=== PATIENT | male | born 1980 | race Caucasian/White ===

== ENCOUNTER → 2017-06-21 | Outpatient (REF) | LOC: M SMT 09:18 | DX: Z02.71 Encounter for disability determination (principal) ==

== ENCOUNTER 2018-07-26 16:17 | Emergency (ER) | payer OTHER ==
[~2018-07-26] VITALS: Ht 175.3 cm; Wt 94.9 kg
[2018-07-26] MEDS ORDERED: IBUP-1114 PO (16:28)
[2018-07-26] MEDS ORDERED: METO1TAB7 (16:28)
[2018-07-26] MEDS ORDERED: CLAR10CA3 PO (16:28)
[2018-07-26] MEDS ORDERED: NS 1,000 ML IV ONE (18:30)
[2018-07-26 18:51] LABS: BASO % 0.1 % (0.0-1.0); EOS # 0.1 10^3/uL (0.0-0.50); EOS % 1.1 % (0.0-3.0); HEMATOCRIT 40.4 % (42.0-52.0); HEMOGLOBIN 14.2 g/dl (13.5-17.5); LYMPH # 0.7 10^3/uL (1.5-4.5); LYMPH % 9.7 % (24.0-44.0); MEAN CORPUSCULAR HEMOGLOBIN 33.4 pg (27.0-33.0); MEAN CORPUSCULAR HGB CONC 35.1 g/dl (32.0-36.5); MEAN CORPUSCULAR VOLUME 95.1 fl (80.0-96.0); MONO # 0.4 10^3/uL (0.0-0.8); MONO % 5.7 % (0.0-5.0); NEUTROPHILS # 5.8 10^3/uL (1.8-7.7); NEUTROPHILS % 83.1 % (36.0-66.0); PLATELET COUNT, AUTOMATED 164 10^3/uL (150-450); RED BLOOD COUNT 4.25 10^6/uL (4.30-6.10)
[2018-07-26 19:03] LABS: ALBUMIN 3.6 GM/DL (3.2-5.2); ALT/SGPT 232 U/L (12-78); AMYLASE 27 U/L (25-115); BILIRUBIN,TOTAL 7.8 MG/DL (0.2-1.0); BLOOD UREA NITROGEN 10 MG/DL (7-18); CALCIUM LEVEL 8.4 MG/DL (8.5-10.1); CARBON DIOXIDE LEVEL 26 MEQ/L (21-32); CHLORIDE LEVEL 104 MEQ/L (98-107); CREATININE FOR GFR 0.91 MG/DL (0.70-1.30); GAMMA GLUTAMYLTRANSPEPTIDASE 701 U/L (15-85); GLOMERULAR FILTRATION RATE > 60.0 (>60); GLUCOSE, FASTING 97 MG/DL (70-100); LIPASE 186 U/L (73-393); POTASSIUM SERUM 3.6 MEQ/L (3.5-5.1); SODIUM LEVEL 138 MEQ/L (136-145); TOTAL PROTEIN 6.2 GM/DL (6.4-8.2)
--- NOTE | 2018-07-26 19:41 | REPVR ---
EXAM: US Abdomen Limited, Right Upper Quadrant EXAM DATE/TIME: 07/26/2018 6:12 PM CLINICAL HISTORY: 38 years old, male; Pain; Abdominal pain; Acute; Additional info: Ruq pain with jaundice TECHNIQUE: Imaging protocol: Real-time ultrasound of the abdomen with image documentation. Examination was focused on the right upper quadrant. COMPARISON: No relevant prior studies available. FINDINGS: Liver: The liver is mildly heterogeneous in appearance and increased in echotexture. It measures at least 17 cm in craniocaudal span. Gallbladder: . Small amount of sludge is noted within the gallbladder. The gallbladder wall is slightly thickened measuring approximately 4 mm. Common bile duct: The common bile duct measures 0.35 cm. Pancreas: The pancreatic head and tail are not completely seen due to bowel gas. The neck and body of the pancreas are unremarkable Right kidney: The right kidney measures 12.6 x 4.9 x 5.8 cm. IMPRESSION: 1. No ductal dilatation. 2. Sludge in the gallbladder. Mild gallbladder wall thickening which is a nonspecific finding and can be seen in a variety of metabolic and inflammatory etiologies. 3. Mild hepatomegaly. The liver is heterogeneous in appearance and slightly increased in echotexture suggesting underlying infiltrative process. Electronically signed by: Zelda Capellan On 07/26/2018 19:40:31 PM
[2018-07-26] MEDS ORDERED: MORPHINE 2 MG/ML 1ML SYRINGE (J2270) IV ONE (21:15)
--- NOTE | 2018-07-27 00:40 | CR ---
DATE OF CONSULTATION: 07/26/2018 Reason for consultation is elevated liver function tests with gallbladder sludge. HISTORY OF PRESENT ILLNESS: The patient is a pleasant 38-year-old man who reports that on this past 07/24/2018, at approximately 2130 hours, he noted the onset of what he described as some indigestion or mild epigastric discomfort. By approximately 0100 hours on Monday he noted right upper quadrant pain, which became more severe as time passed. Because of the discomfort, he presented to [facility] in [place] where he apparently had some lab work and underwent a CT scan. I am told that the CT scan showed some gallbladder sludge or small stones, but I do not have access to an official report of the study. Later on Monday, the patient noted dark urine and felt that he must be dehydrated, so he tried to force himself to drink a lot of water. He began to have more back pain on the right-hand side. He also has described aches and pains, muscle aches, headache, chills and fever during the last several days. He had one episode of vomiting early in the morning on 07/26/2018. Because of his persistent darkened urine and other symptoms, he presented to the emergency department at [facility] for evaluation. He was found to have elevations of his liver function tests, particularly his bilirubin. A gallbladder ultrasound was done. The physician cement tester assistant (PA) in the emergency, apparently in consultation with their supervising physician, decided that the patient should be transferred to [place] due to lack of availability of a auto finance sales rep at [facility]. Apparently I am now asked to evaluate the patient at the request of the possible accepting physician in [place]. ALLERGIES: The patient denies any known drug allergies. MEDICATIONS: The patient reports his medications include metoprolol 25 mg daily and some loratadine daily. MEDICAL HISTORY: Significant for an elevated resting heart rate, which is why he says he is taking metoprolol. He has some environmental allergies. The patient's primary physician is a Dr. Santos at [facility]. SURGICAL HISTORY: The patient has had a vasectomy but has had no abdominal surgery. SOCIAL HISTORY: The patient does drink alcohol. Denies any alcohol intake in the last few days or any binge drinking any time recently. REVIEW OF SYSTEMS: The patient denies any chest pain or palpitations. He has had no shortness of breath, cough or wheezing. He denies any dysuria or hematuria but has noted that his urine is dark. He has had no diarrhea or constipation or rectal bleeding. He did notice that his most recent bowel movement was somewhat technician support association in [place]. There are no bone or joint issues. He denies any history of deep vein thrombosis (DVT) or pulmonary embolus. He has had no recent contacts with notably ill people. FAMILY HISTORY: Noncontributory. PHYSICAL EXAM: Reveals a pleasant man sitting quietly on the ER stretcher. His most recent vital signs showed a pulse of 65, blood pressure of 118/70, and a respiratory rate of 16. Temperature on admission was 96.9. The patient's skin is warm and dry. He does appear to have some mild scleral icterus. He appears comfortable at rest. He is alert and oriented. Neck is supple without mass. Heart exam shows a regular rhythm. The lungs are clear to auscultation. The abdomen is flat. He has bowel sounds present. There is no tympany to percussion. Palpation reveals some mild direct tenderness in the right subcostal area. There is no rebound or guarding. The remainder of the abdomen is without evidence of tenderness. There is no evident hernia. The lower extremities are without edema, and he has palpable radial and dorsalis pedis pulses bilaterally. LABORATORY STUDIES: Include a CBC showing a white count of 7 with 83% neutrophils, 10% lymphocytes and 6% monocytes. Hemoglobin is 14 with a hematocrit of 40 and the platelet count is 164,000. A urinalysis shows a specific gravity of 1.006 with 1+ bilirubin and is not strongly suggestive of a urinary tract infection. Chemistry profile shows glucose 97, BUN 10, creatinine 0.9. Electrolytes are normal. SGOT is 84, SGPT is 232 and the GGT is 701. His total bilirubin is 7.8 with a direct bilirubin of 6.0. Lipase is 186. A gallbladder ultrasound was done in the emergency department. This revealed a small amount of sludge within the gallbladder with slight thickening of the gallbladder wall up to approximately 4 mm. The common bile duct was normal at 0.35 cm. There is no ductal dilatation noted. There was some mild hepatomegaly suggested by the radiologist. It was reported that the liver was mildly heterogeneous in appearance and increased in echo texture. IMPRESSION: The patient has 2 days approximately of abdominal pain, which began in the right upper quadrant, now with some pain also into the right back. He has had elevation of liver function tests. Ultrasound today shows some sludge within the gallbladder, as well as some mild thickening of the gallbladder wall. He has developed some jaundice with a fairly marked elevation of the total bilirubin. I think his clinical picture is most consistent with cholelithiasis with choledocholithiasis and some bile duct obstruction. I do not think he has severe enough acute cholecystitis to account for his liver function test elevations and I, therefore, think ductal debris or stones are more likely. I think the onset of his problem is more consistent with a gallstone issue than a viral illness or other inflammatory or infectious condition. RECOMMENDATIONS: I am told that we do not have gastroenterology coverage today. Because an endoscopic retrograde cholangiopancreatography (ERCP) would be the approach of choice to address any common bile duct stones, I think it would be prudent for him to be transferred to have the ERCP performed. I advised the patient that if he is found to have stones or sludge in the common bile duct at ERCP that a subsequent cholecystectomy would be recommended to prevent recurrence of this problem. MALIHA
[2018-07-27] MEDS ORDERED: KETOROLAC 30 MG/ML VIAL (J1885) IV ONE (01:45)
[2018-07-27 01:58] VITALS: BP 127/79
[2018-07-27 10:13] LABS: HEPATITIS B SURFACE ANTIGEN NEGATIVE (NEGATIVE)
[2018-07-27 10:40] LABS: HEPATITIS B CORE ANTIBODY IGM NEGATIVE (NEGATIVE)
[2018-07-27 10:43] LABS: HEPATITIS A ANTIBODY IGM NEGATIVE (NEGATIVE)
== END 2018-07-27 01:59 | disposition short-term general hospital (02) ==
LOC: M ED 16:17
DX: R10.11 Right upper quadrant pain (principal); R17 Unspecified jaundice; R94.5 Abnormal results of liver function studies; G44.209 Tension-type headache, unspecified, not intractable; R00.0 Tachycardia, unspecified; R50.9 Fever, unspecified; N20.0 Calculus of kidney; K83.8 Other specified diseases of biliary tract; Z87.19 Personal history of other diseases of the digestive system; Z87.440 Personal history of urinary (tract) infections; J30.89 Other allergic rhinitis; F17.210 Nicotine dependence, cigarettes, uncomplicated; Z79.899 Other long term (current) drug therapy
CPT/HCPCS: 76705; 80053; 81001; 82150; 82248; 82977; 83605; 83690; 85025; 86705; 86709; 86803; 87040; 87340; 96374; 96375; 99284; J1885; J2270